=== PATIENT | female | born 1950 | race Caucasian/White ===

== ENCOUNTER 2017-06-13 16:32 | Emergency (ER) | payer MEDICARE, OTHER ==
[2017-06-13] MEDS ORDERED: LIDOCAINE 1% 50 ML VIAL INJ ONE (16:36)
[2017-06-13 16:52] VITALS: BP 145/70; TEMP 97.8; O2SAT 96
[2017-06-13] MEDS ORDERED: POVIDONE IODINE 10 % 15 ML UD TOP ONE (16:55)
[2017-06-13] MEDS ORDERED: MORPHINE SULFATE INJ 10 MG/ML VIAL ONE (16:57)
[2017-06-13] MEDS ORDERED: MORPHINE SULFATE INJ 10 MG/ML VIAL IM ONE (17:00)
--- NOTE | 2017-06-13 17:04 | ED.PDOC ---
History of Present Illness - General Chief Complaint: Skin/Abrasion/Tear Stated Complaint: Spade in L posterior hand Time Seen by Provider: 06/13/17 17:00 Additional Information: LARGE SINGLE HOOK DORSAL ASPECT L HAND. TETANUS UTD. C/O PAIN TO HAND AND UP ARM. WAS DEEPER AND PT PUSHED THROUGH SOME. 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 Factors: nothing Worsening Factors: movement Associated Symptoms: other - PAIN ARM Allergies/Adverse Reactions: Allergies Sulfa Drugs Allergy (Unknown, Verified 01/08/13 14:10) Influenza Vaccine Live Adverse Reaction (Severe, Verified 01/08/13 14:10) Other put her in the hospital Pneumococcal Vaccines Adverse Reaction (Severe, Verified 01/08/13 14:10) Other Hospitalized Home Medications: Ambulatory Orders Cephalexin Monohydrate [Keflex] 500 mg PO TID #30 cap 06/13/17 HYDROcodone 10MG/APAP 325MG [[place] 10/325] 1 ea PO STAT PRN 06/13/17 Ipratropium/Albuterol [Duoneb] 3 ml INH Q4H PRN 06/13/17 Pramipexole Dihydrochloride [Mirapex] 0.25 mg PO BID 06/13/17 Sertraline HCl [Zoloft] 200 mg PO HS 06/13/17 Review of Systems - Review of Systems Constitutional: Denies: chills, fever Gastrointestinal/Abdominal: Denies: nausea, vomiting Musculoskeletal: Denies: joint pain, muscle pain Skin: Denies: lesions Neurological: States: tingling. Denies: numbness Past Medical History (General) - Patient Medical History Hx Seizures: No Hx Stroke: No Hx Dementia: No Hx Asthma: No Hx of COPD: Yes Hx Cardiac Disorders: No Hx Congestive Heart Failure: No Hx Pacemaker: No Hx Hypertension: No Hx Thyroid Disease: No Hx Diabetes: No Hx Gastroesophageal Reflux: No Hx Renal Disease: No Hx Cancer: No Hx of HIV: No Hx Hepatitis C: No Hx MRSA: No Surgical History: cholecystectomy, Hysterectomy - Vaccination History Hx Tetanus, Diphtheria Vaccination: Yes - In March after fishhook injury Hx Influenza Vaccination: No Hx Pneumococcal Vaccination: No - Social History Hx Tobacco Use: No Hx Chewing Tobacco Use: No Hx Alcohol Use: Yes - occas Hx Substance Use: No Hx Substance Use Treatment: No Hx Depression: No Feels Threatened In Home Enviroment: No Feels Threatened In a Relationship: No Hx Physical Abuse: No Hx Emotional Abuse: No Hx Suspected Abuse: No - Female History Patient is a Female of Child Bearing Age (10 -59 yrs old): No Patient : No Family Medical History - Family History Mother Living Status: Hx Family Diabetes: Yes Physical Exam - Physical Exam General Appearance: Anxious, Other - MOD DISTRESS DTP Eye Exam: bilateral normal Ears, Nose, Throat: hearing grossly normal, normal ENT inspection Neck: full range of motion, supple Extremity: other - FISHHOOK DORSAL ASPECT L HAND. TIP LOCATED JUST UNDER SKIN. PALPABLE THROUGH JUST SLIGHTLY. NO ACTIVE BLEEDING, MILD SWELLING. Neurologic: normal mood/affect Skin Exam: other - NO ECCYMOSIS, MILD SWELLING. Progress - EKG/XRAY/CT XRAY: POST REMOVAL SHOWS NO FX. - FB NOTED, NO APPARENT BONY INJURY BUT HOOK OBSCURES PART OF METACARPAL Procedures - Foreign Body Removal Foreign Body Removal: other - ONCE JAYY WAS EXPOSED, CUT WITH SIDE CUTTERS HOOK REMOVED WITHOUT DIFFICULTY. Foreign Body Physician Comment:: PREPPED WITH BETADINE. 1% LIDO INSTILLED. SMALL INCISION MADE OVER JAYY Departure - Departure Clinical Impression: Foreign body in hand Qualifiers: Encounter type: initial encounter Laterality: left Qualified Code(s): S60.552A - Superficial foreign body of left hand, initial encounter Time of Disposition: 17:54 Disposition: Discharge to Home or Self Care Condition: Good Departure Forms: ED Discharge - Pt. Copy, Patient Portal Self Enrollment Instructions: DI for Hand Injury Prescriptions: Cephalexin Monohydrate [Keflex] 500 mg PO TID #30 cap Home Medications: Ambulatory Orders Cephalexin Monohydrate [Keflex] 500 mg PO TID #30 cap 06/13/17 HYDROcodone 10MG/APAP 325MG [[place] 10/325] 1 ea PO STAT PRN 06/13/17 Ipratropium/Albuterol [Duoneb] 3 ml INH Q4H PRN 06/13/17 Pramipexole Dihydrochloride [Mirapex] 0.25 mg PO BID 06/13/17 Sertraline HCl [Zoloft] 200 mg PO HS 06/13/17
[2017-06-13] MEDS ORDERED: NEOMYCIN-BACITRACIN-POLYMYXIN 0.9 GM UD TOP ONE (17:09)
--- NOTE | 2017-06-13 17:19 | RAD ---
EXAM DESCRIPTION: Hand,Left 3 Views CLINICAL HISTORY: FB HAND COMPARISON: None. TECHNIQUE: 3 views left FINDINGS: A large fishhook is observed implanted between the second and third metacarpals in the posterior soft tissues of the hand degenerative changes are observed in the metacarpal carpal articulation of the first digit. A compression plate and screws are observed in the distal radius from prior fracturing. 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 Prior avulsion of the ulnar styloid process is observed. IMPRESSION: A large fishhook is implanted in the soft tissues between the second and third left metacarpals Electronically signed by: Shayan Torres MD 06/13/2017 5:18 PM CDT
[2017-06-13] MEDS ORDERED: ONDANSETRON ODT 8 MG TAB SL PRN (17:23)
[2017-06-13] MEDS ORDERED: ONDANSETRON ODT 8 MG TAB ONE (17:25)
--- NOTE | 2017-06-13 17:39 | RAD ---
EXAM DESCRIPTION: Hand,Left 3 Views CLINICAL HISTORY: POST FB REMOVAL COMPARISON: 13 June 2013 TECHNIQUE: 3 views left FINDINGS: The previously observed large fishing hook has been removed from the posterior soft tissues of the hand. No residual foreign body is observed in the region. Persistent degenerative changes are observed. Exam also reveals a fusion plate and screws bridging a fracture of the distal radius. Some gas is observed in the soft tissues posteriorly. IMPRESSION: Interval removal of a large fishhook Electronically signed by: Shayan Torres MD 06/13/2017 5:38 PM CDT
[2017-06-13] MEDS ORDERED: LIDOCAINE 1% 10 ML VIAL INJ ONE (17:52)
[2017-06-13] MEDS ORDERED: ceFAZolin SODIUM 1 GM VIAL ONE (17:52)
[2017-06-13] MEDS ORDERED: ceFAZolin SODIUM 1 GM VIAL IM ONE (17:55)
== END 2017-06-13 18:12 | disposition home or self-care (01) ==
LOC: ER 16:32
DX: S60.552A Superficial foreign body of left hand, initial encounter (principal); J44.9 Chronic obstructive pulmonary disease, unspecified; Z88.2 Allergy status to sulfonamides; Z88.7 Allergy status to serum and vaccine; X58.XXXA Exposure to other specified factors, initial encounter; Y92.9 Unspecified place or not applicable
CPT/HCPCS: 73130; J0690; J2270

== ENCOUNTER → 2017-07-21 | Outpatient (CLI) | payer MEDICARE, OTHER | END | disposition home or self-care (01) | LOC: LAB.O 11:51 | PROVIDERS: ATTEND Nurse Practitioner Family | DX: A23 Brucellosis (principal) ==

== ENCOUNTER → 2017-07-27 | Outpatient (CLI) | payer MEDICARE, OTHER ==
--- NOTE | 2017-07-27 16:07 | CT ---
EXAM DESCRIPTION: CT ABDOMEN AND PELVIS WITHOUT AND WITH CONTRAST CLINICAL HISTORY: ABDOMINAL/PELVIC MASS COMPARISON: June 04, 2016 TECHNIQUE: CT of the abdomen and pelvis are performed prior to and during IV bolus administration of nonionic contrast. Oral contrast media was not administered This exam was performed according to our departmental dose-optimization program, which includes automated exposure control, adjustment of the mA and/or kV according to patient size and/or use of iterative reconstruction technique. FINDINGS: Lung bases are clear without infiltrate or effusion or mass. Breast implants overlie the anterior lower chest. Noncontrast imaging demonstrates no abnormality of the liver with apparent. Surgical absence of the gallbladder without ductal dilation. No renal calculi are noted. Aortic calcification without aneurysm is evident. No abdominal or pelvic fluid is noted with diverticulosis of the left colon and surgical absence of the uterus. Multiple surgical clips in the left lateral and posterior pelvis are unchanged. Venous enhanced imaging demonstrates normal enhancement without focal mass. Normal-appearing spleen and pancreas are noted. The kidneys intensely enhance without obstruction or mass or cyst in the adrenal glands are normal. Aortic calcification without aneurysm is evident with no evidence of retroperitoneal or mesenteric adenopathy. Vaginal cuff appears unremarkable. Delayed imaging demonstrates a single normal collecting system involving each kidney with layering contrast in the bladder. No anterior abdominal wall mass or hernia is noted. No inflammatory changes involving the left colon are noted. The appendix is not identified but no inflammatory process in the right lower quadrant noted. Degenerative disc disease with mild anterolisthesis at the L3-4 level with facet arthropathy is evident. The vaginal cuff and lower pelvis is unremarkable. No adnexal masses are noted and no evidence of renal obstruction seen. IMPRESSION: 1. Surgical absence of the gallbladder and uterus with surgical clips in the left lower pelvis laterally and posteriorly. 2. Left colonic diverticulosis without acute diverticulitis. 3. An abdominal or pelvic mass is not apparent 4. Degenerative spine disease most prominent at L3-4. Electronically signed by: Tom Merchant MD 07/27/2017 4:06 PM CDT
== END | disposition home or self-care (01) ==
LOC: CT 10:26
PROVIDERS: ATTEND Family Medicine
DX: K57.30 Diverticulosis of large intestine without perforation or abscess without bleeding (principal); R19.00 Intra-abdominal and pelvic swelling, mass and lump, unspecified site

== ENCOUNTER → 2017-07-28 | Outpatient (CLI) | payer MEDICARE, OTHER | LOC: GMAM 14:20 | PROVIDERS: ATTEND Family Medicine | DX: R10.9 Unspecified abdominal pain (principal); R74.8 Abnormal levels of other serum enzymes; R79.9 Abnormal finding of blood chemistry, unspecified; R53.83 Other fatigue; E56.9 Vitamin deficiency, unspecified; E55.9 Vitamin D deficiency, unspecified ==

== ENCOUNTER → 2017-09-05 | Outpatient (CLI) | payer MEDICARE, OTHER ==
--- NOTE | 2017-09-06 13:06 | RAD ---
EXAM DESCRIPTION: Abdomen Flat Upright CLINICAL HISTORY: LLQ PAIN COMPARISON: CT the abdomen pelvis dated 27 July 2017 TECHNIQUE: AP supine and upright views of the abdomen FINDINGS: The bowel gas pattern is normal. No evidence of free intraperitoneal air is seen. No organomegaly is detected. Surgical clips are seen in the left side of the pelvis. No pathologic calcifications are observed. IMPRESSION: Unremarkable abdomen. Electronically signed by: Shayan Torres MD 09/06/2017 1:05 PM CDT
== END | disposition home or self-care (01) ==
LOC: RAD 16:04
PROVIDERS: ATTEND Surgery
DX: R10.814 Left lower quadrant abdominal tenderness (principal)

== ENCOUNTER → 2017-11-23 | Outpatient (CLI) | payer MEDICARE, OTHER ==
--- NOTE | 2017-11-23 12:07 | CT ---
EXAM DESCRIPTION: Head: CT CLINICAL HISTORY: CONCUSSION WITH LOSS OF CONSCIOUSNESS OF UNSPECIFIED DURATION COMPARISON: None. TECHNIQUE: Non-helical axial scans through the skull and brain, at 2.5 mm intervals, non-contrast. Coronal and sagittal 2.0 mm reconstructions. Total Exam DLP: 677.23 mGy-cm. This exam was performed according to our departmental dose-optimization program which includes automated exposure control, adjustment of the mA and/or kV according to patient size and/or use of iterative reconstruction technique; to reduce radiation dose to as low as reasonably achievable (ALARA). FINDINGS: No hemorrhage, no mass-effect, and no midline shift. Normal adams-white matter differentiation. No abnormal radiodense material in the brain parenchyma. Vascular calcifications anterior intimal; physiologic calcifications in the pineal gland and choroid plexus. No effacement or displacement of the ventricles, CSF spaces, or subdural spaces. No extra axial fluid collection or hemorrhage. No gross abnormalities of the bony calvarium. Included paranasal sinuses and mastoid air cells are well - aerated. IMPRESSION: 1. No hemorrhage, no mass effect, no midline shift. Normal CT scan of the head without IV contrast. Brain appears physiologic for patient's age. 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
== END | disposition home or self-care (01) ==
LOC: CT 11:32
PROVIDERS: ATTEND Physician Assistant
DX: S06.0X9A Concussion with loss of consciousness of unspecified duration, initial encounter (principal); X58.XXXA Exposure to other specified factors, initial encounter

== ENCOUNTER → 2018-06-13 | Outpatient (CLI) | payer MEDICARE, OTHER | LOC: GMAM 11:55 | PROVIDERS: ATTEND Family Medicine | DX: E55.9 Vitamin D deficiency, unspecified (principal) ==

== ENCOUNTER → 2018-07-11 | Outpatient (CLI) | payer MEDICARE, OTHER ==
--- NOTE | 2018-07-11 10:34 | CT ---
EXAM DESCRIPTION: CT ABDOMEN AND PELVIS WITHOUT AND WITH CONTRAST CLINICAL HISTORY: Left lower quadrant pain and fullness COMPARISON: July 27, 2017 TECHNIQUE: CT of the abdomen and pelvis are performed prior to and during IV bolus administration of IV contrast. FINDINGS: The lung bases are clear of infiltrate. Liver is normal in size and parenchymal appearance. Spleen, pancreas, and kidneys are unremarkable. Extensive sigmoid diverticulosis with no CT evidence of diverticulitis. There is no lymphadenopathy, inflammation, or free fluid observed. IMPRESSION: Sigmoid diverticulosis This exam was performed according to our departmental dose-optimization program, which includes automated exposure control, adjustment of the mA and/or kV according to patient size and/or use of iterative reconstruction technique. Electronically signed by: Ted Mccoy MD 07/11/2018 10:33 AM CDT
== END ==
LOC: CT 08:25
PROVIDERS: ATTEND Family Medicine
DX: K57.30 Diverticulosis of large intestine without perforation or abscess without bleeding (principal); R10.84 Generalized abdominal pain

== ENCOUNTER → 2018-07-25 | Outpatient (CLI) | payer MEDICARE, OTHER ==
--- NOTE | 2018-07-25 10:17 | MRI ---
EXAM DESCRIPTION: MRI abdomen without and with contrast CLINICAL HISTORY: Left sided abdominal mass lesion. Sigmoid diverticulosis. Enlargement of mass lesion over the previous year COMPARISON: CT 07/11/2018 TECHNIQUE: Multiplanar, multisequence MR images of the abdomen, pre and post intravenous gadolinium FINDINGS: Marker placed left lateral overlying the oblique musculature. There is no cutaneous, subcutaneous or muscle mass lesion. No abdominal wall hernia No soft tissue mass or adenopathy within the abdomen. Omentum, mesentery and retroperitoneum included in the [id number] are normal No abdominal visceral mass lesion to suggest metastatic disease or primary neoplasm. Normal contrast enhancement Previous cholecystectomy with expected mildly prominent postcholecystectomy extrahepatic common bile duct. No ductal obstruction. No pancreatic duct dilation IMPRESSION: Normal pre and postcontrast MRI abdomen Electronically signed by: Tom Erwin MD 07/25/2018 10:16 AM CDT
== END ==
LOC: MRI 08:00
PROVIDERS: ATTEND Family Medicine
DX: R19.06 Epigastric swelling, mass or lump (principal)

== ENCOUNTER → 2019-01-09 | Outpatient (CLI) | payer MEDICARE, OTHER | LOC: GMAM 10:31 | PROVIDERS: ATTEND Family Medicine | DX: E55.9 Vitamin D deficiency, unspecified (principal) ==

== ENCOUNTER 2019-02-23 19:03 | Observation (INO) | payer MEDICARE, OTHER ==
[2019-02-23] MEDS ORDERED: SODIUM CHLORIDE 0.9% 1000ML 1,000 ML IVS PRN (19:06)
[2019-02-23] MEDS ORDERED: fentaNYL CITRATE INJ 50 MCG/ML AMP IV ONE ×3 (19:19→22:04)
--- NOTE | 2019-02-23 19:23 | ED.PDOC ---
History of Present Illness - General Chief Complaint: Trauma Stated Complaint: bucked off horse with LOC Time Seen by Provider: 02/23/19 19:16 Source: family - Exam Limitations: no limitations - History of Present Illness Initial Comments: Anita Moreno 68 y/o female brought by stating that while she was riding her horse she got bucked off fell head and back hitting the ground. stated that she lost consciousness for about 5 minutes after the incident- tried talking to her but not responding back.Then on waking up she was achy on the back of her head ,neck and back.On arrival to ER she was awake answering questions. Occurred: this evening Severity: moderate Pain Location: head, neck, back Method of Injury: fall - off a horse Improving Factors: rest Worsening Factors: movement Loss of Consciousness: prolonged (minutes) - 5 Associated Symptoms (Fall): headache - see hpi, neck pain Allergies/Adverse Reactions: Allergies Sulfa Drugs Allergy (Unknown, Verified 01/08/13 14:10) Influenza Vaccine Live Adverse Reaction (Severe, Verified 01/08/13 14:10) Other put her in the hospital Pneumococcal Vaccines Adverse Reaction (Severe, Verified 01/08/13 14:10) Other Hospitalized Home Medications: Ambulatory Orders Cephalexin Monohydrate [Keflex] 500 mg PO TID #30 cap 06/13/17 HYDROcodone 10MG/APAP 325MG [[place] 10] 1 ea PO STAT PRN 06/13/17 Ipratropium/Albuterol [Duoneb] 3 ml INH Q4H PRN 06/13/17 Pramipexole Dihydrochloride [Mirapex] 0.25 mg PO BID 06/13/17 Sertraline HCl [Zoloft] 200 mg PO HS 06/13/17 Review of Systems - Review of Systems Constitutional: States: no symptoms reported EENTM: States: no symptoms reported Respiratory: States: no symptoms reported Cardiology: States: no symptoms reported Gastrointestinal/Abdominal: States: no symptoms reported Genitourinary: States: no symptoms reported Musculoskeletal: States: back pain, neck pain Neurological: States: headache Endocrine: States: no symptoms reported Hematologic/Lymphatic: States: no symptoms reported Past Medical History (General) - Patient Medical History Hx Seizures: No Hx Stroke: No Hx Dementia: No Hx Asthma: No Hx of COPD: Yes Hx Cardiac Disorders: No Hx Congestive Heart Failure: No Hx Pacemaker: No Hx Hypertension: No Hx Thyroid Disease: No Hx Diabetes: Yes Hx Gastroesophageal Reflux: No Hx Renal Disease: No Hx Cancer: No Hx of HIV: No Hx Hepatitis C: No Hx MRSA: No Surgical History: other - hysterectomy,neck,foot,hand - Vaccination History Hx Tetanus, Diphtheria Vaccination: Yes - In March after fishhook injury Hx Influenza Vaccination: No Hx Pneumococcal Vaccination: No - Social History Hx Tobacco Use: No Hx Chewing Tobacco Use: No Hx Alcohol Use: Yes - occas Hx Substance Use: No Hx Substance Use Treatment: No Hx Depression: No Hx Physical Abuse: No Hx Emotional Abuse: No Hx Suspected Abuse: No - Female History Patient : No Family Medical History - Family History Mother Living Status: Hx Family Diabetes: Yes Physical Exam - Physical Exam General Appearance: No apparent distress, Other - in pain Head Injury: no evidence of injury Eye Exam: bilateral normal ENT Exam: hearing grossly normal, no evidence of ENT injury, no dental injury Neck Exam: normal alignment, normal inspection, tender midline Cardiovascular/Respiratory: regular rate, rhythm, no M/R/G, normal peripheral pulses, normal breath sounds Gastrointestinal/Abdominal: normal bowel sounds, non tender, soft Back Exam: normal inspection, vertebral tenderness Extremity Exam: no evidence of injury, non-tender, no pedal edema Neurologic: no motor/sensory deficits, alert, oriented x 3 Skin Exam: normal color, warm/dry - Anna Coma Score Best Eye Response ([place]): (4) open spontaneously Best Verbal Response ([place]): (5) oriented Best Motor Response ([place]): (6) obeys commands [place] Total: 15 Progress - Progress Progress: 02/23/19 21:52 Vital Signs - 8 hr 02/23/19 02/23/19 19:05 20:53 Temperature 98.4 F Pulse Rate [ 89 85 monitor] Respiratory 22 18 Rate Blood Pressure 149/79 139/66 [left] O2 Sat by Pulse 100 97 Oximetry - Results/Orders Results/Orders: 02/23/19 19:06 Telemetry .ONCE Sodium Chloride 0.9% 1000ML [Ns 1000 ml] 1,000 ml IVS .QD EKG Stat URINALYSIS Stat 02/23/19 19:08 Hold Metformin x 48Hrs [id number] 02/23/19 19:14 Hold Metformin x 48Hrs [id number] 02/23/19 21:51 ED Intent to Admit Routine 02/24/19 09:00 Pulse Ox Daily Laboratory Results - last 24 hr 02/23/19 02/23/19 02/23/19 19:15 19:15 19:15 WBC 7.7 RBC 4.13 L Hgb 12.7 Hct 37.3 MCV 90.4 MCH 30.7 MCHC 34.0 RDW 13.9 Plt Count 227 MPV 8.0 Absolute Neuts (auto) 5.10 Absolute Lymphs (auto) 1.90 Absolute Monos (auto) 0.50 Absolute Eos (auto) 0.20 Absolute Basos (auto) 0.10 Neutrophils % 66.4 Lymphocytes % 24.2 Monocytes % 6.0 Eosinophils % 2.6 Basophils % 0.8 PT 9.9 INR 0.99 PTT (SP) 21.5 L Sodium 136 Potassium 3.3 L Chloride 101 Carbon Dioxide 20 L Anion Gap 18.3 H BUN 19 H Creatinine 0.86 BUN/Creatinine Ratio 22.1 H Random Glucose 122 H Serum Osmolality 275.5 Calcium 9.2 Total Bilirubin 0.4 AST 20 ALT 16 Alkaline Phosphatase 69 Serum Total Protein 7.4 Albumin 4.2 Globulin 3.2 Albumin/Globulin Ratio 1.3 Amylase 30 Ethyl Alcohol 02/23/19 19:15 WBC RBC Hgb Hct MCV MCH MCHC RDW Plt Count MPV Absolute Neuts (auto) Absolute Lymphs (auto) Absolute Monos (auto) Absolute Eos (auto) Absolute Basos (auto) Neutrophils % Lymphocytes % Monocytes % Eosinophils % Basophils % PT INR PTT (SP) Sodium Potassium Chloride Carbon Dioxide Anion Gap BUN Creatinine BUN/Creatinine Ratio Random Glucose Serum Osmolality Calcium Total Bilirubin AST ALT Alkaline Phosphatase Serum Total Protein Albumin Globulin Albumin/Globulin Ratio Amylase Ethyl Alcohol < 5.40 - EKG/XRAY/CT CT Ordered: Yes - total Body Scan-No acute abnormalities;degenerative changes Departure - Departure Clinical Impression: Fall from horse Qualifiers: Encounter type: initial encounter Qualified Code(s): V80.010A - Animal-rider injured by fall from or being thrown from horse in noncollision accident, initial encounter Headache Qualifiers: Headache type: unspecified Headache chronicity pattern: acute headache Intractability: not intractable Qualified Code(s): R51 - Headache Concussion Qualifiers: Encounter type: initial encounter Loss of consciousness presence/duration: with LOC of 30 min or less Qualified Code(s): S06.0X1A - Concussion with loss of consciousness of 30 minutes or less, initial encounter Time of Disposition: 21:50 Disposition: Admit Patient Condition: Fair Departure Forms: Patient Portal Self Enrollment Referrals: Tom Sultana MD [Primary Care Provider] - 1-2 Weeks Home Medications: Ambulatory Orders Cephalexin Monohydrate [Keflex] 500 mg PO TID #30 cap 06/13/17 HYDROcodone 10MG/APAP 325MG [[place] 10325] 1 ea PO STAT PRN 06/13/17 Ipratropium/Albuterol [Duoneb] 3 ml INH Q4H PRN 06/13/17 Pramipexole Dihydrochloride [Mirapex] 0.25 mg PO BID 06/13/17 Sertraline HCl [Zoloft] 200 mg PO HS 06/13/17 Decision To Admit - Decistion To Admit Decision to Admit Reason: Admit from ER Decision to Admit Date: 02/23/19 - D/W Izzy Garcia-ANP/Hospitalist Decision to Admit Time: 21:51
--- NOTE | 2019-02-23 20:25 | CT ---
EXAM: Head CLINICAL INDICATION: 68-year-old female with loss of consciousness status post trauma. COMPARISON: 11/23/2017. TECHNIQUE: CT brain without contrast. This exam was performed according to our departmental dose optimization program which includes use of automated exposure control, adjustment of the mA and/or kV according to patient size and/or use of iterative reconstruction technique. FINDINGS: The ventricles, sulci, and cisterns are within normal limits. The adams-white matter differentiation is preserved. There is no mass effect, midline shift, intra- or extra-axial fluid collection/acute hemorrhage. The osseous structures are unremarkable. The paranasal sinuses and mastoid air cells are clear. IMPRESSION: No acute intracranial abnormalities. Electronically signed by: Ronit Pedraza MD 02/23/2019 8:22 PM CDT
--- NOTE | 2019-02-23 20:34 | CT ---
EXAM: Abdomen/Pelvis w/Contrast (accession [id number]), Chest w/Contrast (accession [id number]) CLINICAL INDICATION: 68-year-old female bucked off a horse. COMPARISON: 07/11/2018. EXAMINATION: CT of the chest, abdomen and pelvis was performed following intravenous administration of contrast. Oral contrast was not administered. Multiplanar reformatted images were provided. This exam was performed according to our departmental dose optimization program which includes use of automated exposure control, adjustment of the mA and/or kV according to patient size and/or use of iterative reconstruction technique. FINDINGS: Chest: Evaluation through the lungs reveal no focal opacity, pleural effusion or pneumothorax. Heart size is within normal limits. No pericardial effusion. Bilateral breast prostheses. Abdomen and pelvis: The liver, gallbladder, pancreas, spleen, bilateral kidneys and bilateral adrenal glands are within normal limits. The vessels are patent and normal in caliber. No abdominopelvic lymph nodes are noted to be pathologically enlarged by CT measurement criteria. The bowel is within normal limits without abnormal bowel wall thickness or bowel dilation. Diverticular disease without findings to suggest diverticulitis. No free air. No free abdominopelvic fluid collections. The appendix is not identified. The osseous structures reveal degenerative change and grade 1 anterolisthesis of L4 relative to L5 and trace anterolisthesis of L3 relative to L4 suspected secondary to severe degenerative facet changes at those levels stable in comparison to the previous examination 07/11/2018. IMPRESSION: 1. No specific acute posttraumatic intrathoracic or intra-abdominal findings are noted. 2. Diverticular disease without findings to suggest diverticulitis. 3. Grade 1 anterolisthesis of L4 relative to L5 and trace anterolisthesis of L3 relative to L4 suspected secondary to severe degenerative facet changes at those levels. Electronically signed by: Ronit Pedraza MD 02/23/2019 8:31 PM CDT
--- NOTE | 2019-02-23 20:38 | CT ---
EXAM: Cervical Spine CLINICAL INDICATION: 68-year-old female status post fall from horse with loss of consciousness. TECHNIQUE: Cervical spine CT was performed without contrast. Multiplanar reformatted images were provided. This exam was performed according to our departmental dose optimization program which includes use of automated exposure control, adjustment of the mA and/or kV according to patient size and/or use of iterative reconstruction technique. COMPARISON: None. FINDINGS: There is normal alignment of the cervical spine without fracture or subluxation. The facets are normal in alignment bilaterally. The posterior elements including the spinous processes are intact. Straightening of the cervical spine which may be secondary to positioning for the examination. Morphology and attenuation of the vertebral bodies and intervertebral disc spaces is is compatible with multilevel degenerative change. Multilevel posterior osseous spurring results in multilevel neuroforaminal narrowing. RIGHT side C2-3 severe neuroforaminal narrowing secondary to uncovertebral joint and facet hypertrophy. Postoperative changes of the cervical spine with ventral stabilization hardware and fusion of C3, C4 and C5 vertebral levels. Severe loss of disk height at C2-3 and C5-6 levels. Severe bilateral neuroforaminal narrowing at C5-6 secondary to uncovertebral joint hypertrophy. Moderate bilateral neuroforaminal narrowing at C6-7 secondary to facet hypertrophy. The pre-and paravertebral soft tissues are within normal limits. The airway is patent. Extraspinal imaging is within normal limits. IMPRESSION: 1. Straightening of the cervical spine which may be secondary to positioning for the examination versus spasm. 2. Multilevel degenerative and postoperative changes without fracture or acute subluxation. Electronically signed by: Ronit Pedraza MD 02/23/2019 8:35 PM CDT
[2019-02-23] MEDS ORDERED: ONDANSETRON INJ 4 MG/2 ML VIAL IV ONE (21:15)
[2019-02-23] MEDS ORDERED: ALPRAZolam 0.5 MG TAB PO PRN (23:56)
[2019-02-24] MEDS ORDERED: SERTRALINE HCL 50 MG TAB ONE (00:10)
[2019-02-24] MEDS ORDERED: SODIUM CHLORIDE 0.9% (FLUSH) 10 ML SYG IV PRN (00:13)
[2019-02-24] MEDS ORDERED: ONDANSETRON INJ 4 MG/2 ML VIAL IV PRN (00:13)
[2019-02-24] MEDS: HYDROcodone 10MG/APAP 325MG 1 EA TAB PO PRN ×3 (00:21→10:22)
[2019-02-24] MEDS ORDERED: IV SET AND CAP CHANGE INJ INJ SCH (00:30)
[2019-02-24] MEDS ORDERED: PRAMIPEXOLE 0.25 MG TAB PO ONE ×2 (00:34→01:00)
[2019-02-24 06:08] VITALS: O2SAT 95
[2019-02-24] MEDS ORDERED: PANTOPRAZOLE SODIUM IV 40 MG VIAL IV SCH (06:30)
[2019-02-24] MEDS ORDERED: SODIUM CHLORIDE 0.9% (FLUSH) 10 ML SYG IV SCH (09:00)
[2019-02-24 10:18] VITALS: BP 103/60; TEMP 96.6
[2019-02-24] MEDS ORDERED: ONDANSETRON 4 MG TAB PO ONE (11:31)
[2019-02-24] MEDS ORDERED: HYDROcodone 10MG/APAP 325MG 1 EA TAB PO ONE (11:31)
[2019-02-24] MEDS ORDERED: SERTRALINE HCL 50 MG TAB PO ONE (23:56)
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
== END 2019-02-24 12:28 | disposition home or self-care (01) ==
LOC: ER 19:03 → MS 23:09
PROVIDERS: ADMIT Nurse Practitioner Acute Care; ATTEND Nurse Practitioner Acute Care
DX: S06.0X1A Concussion with loss of consciousness of 30 minutes or less, initial encounter (principal); G44.319 Acute post-traumatic headache, not intractable; M47.812 Spondylosis without myelopathy or radiculopathy, cervical region; J44.9 Chronic obstructive pulmonary disease, unspecified; E11.9 Type 2 diabetes mellitus without complications; G89.4 Chronic pain syndrome; G25.81 Restless legs syndrome; F32.9 Major depressive disorder, single episode, unspecified; F41.9 Anxiety disorder, unspecified; E78.5 Hyperlipidemia, unspecified; K57.30 Diverticulosis of large intestine without perforation or abscess without bleeding; V80.010A Animal-rider injured by fall from or being thrown from horse in noncollision accident, initial encounter; Y93.52 Activity, horseback riding; Y92.79 Other farm location as the place of occurrence of the external cause; Z79.84 Long term (current) use of oral hypoglycemic drugs; Z79.899 Other long term (current) drug therapy; Z88.2 Allergy status to sulfonamides; Z88.7 Allergy status to serum and vaccine; Z88.8 Allergy status to other drugs, medicaments and biological substances
CPT/HCPCS: 96374; 96375 ×2; 96376; J3010 ×3; J2405; J7030; 80053 ×2; 36415 ×2; 82150; 81001; 85025 ×2; 80320; 83735; 85730; 85610; 70450; 72125; 71260; 74177; 94760; 99285; 93005; G0378

== ENCOUNTER → 2019-03-22 | Outpatient (CLI) | payer MEDICARE, OTHER ==
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
== END ==
LOC: MRI 13:00
PROVIDERS: ATTEND Family Medicine
DX: I67.82 Cerebral ischemia (principal)

== ENCOUNTER → 2019-03-27 | Outpatient (CLI) | payer MEDICARE, OTHER ==
--- NOTE | 2019-03-27 10:16 | MRI ---
EXAM: Lumbar Spine w/o Contrast CLINICAL HISTORY: SPINAL STENOSIS LUMBAR REGION COMPARISON STUDY: Images from a CT abdomen and pelvis February 23, 2019 TECHNICAL: MRI images were acquired through the lumbar spine in multiple planes and sequences without contrast administration. FINDINGS: Sagittal images of the lumbar spine show no evidence of vertebral body fracture. There is mild edema-like change within the right L5 pedicle with no finding of cortical disruption to indicate a fracture. An anterior spondylolisthesis of L4 related to L5 is 8 mm. A mild anterior spondylolisthesis of L3 on L4 is 3 mm. There is little change compared to the sagittal reconstructions from the CT scan February 23, 2019. The conus medullaris has a normal appearance. T12-L1 and L1-2: Minimal diffuse annular bulges are seen at these 2 levels. There is no naeem disc herniation. There is no spinal canal stenosis or foraminal stenosis. There is no evidence of nerve root impingement. There are mild degenerative changes of facets and mild ligamentum flavum hypertrophy. L2-3: A posterior disc protrusion measures 4.5 mm and indents the thecal sac without causing spinal canal stenosis. Disc protrudes into each exiting foramina 4-5 mm and these lateral disc protrusions do not impinge on the exiting nerve roots. There are moderate degenerative changes of the facets and moderate ligamentum flavum hypertrophy. An anterior disc protrusion is 4.5 mm. L3-4: A posterior disc herniation extends 6 mm AP by 9 mm in craniocaudal dimension. Disc material extends proximally behind the L3 vertebral body. The central spinal canal measures greater than 12 mm, not stenotic. Disc protrudes into the right exiting foramina 6 mm and of the left exiting foramina 6 mm. Lateral disc protrusions contacting both exiting nerve roots without overt compression. There is moderate to severe facet arthropathy. Significant ligamentum flavum hypertrophy measures up to 6.5 mm. The central spinal canal is greater than 11 mm. 7 mm anterior disc protrusion. L4-5: Spondylolisthesis of 8 mm. A posterior disc herniation extends proximally behind the L4 vertebral body and the disc material measures 10 x 8 mm. The central spinal canal is stenotic due to the combination of posterior disc protrusion, spondylolisthesis and severe ligamentum flavum hypertrophy. The central spinal canal is narrowed to 7 mm. The spinal canal on either side of midline is less than 2 mm. Disc extends laterally in each exiting foramina 7 or 8 mm with impingement of both exiting nerve roots. There are severe degenerative changes of the bilateral facets and severe ligamentum flavum hypertrophy. 7 mm anterior disc protrusion. L5-S1: 4 mm diffuse disc protrusion does not cause central spinal canal stenosis or compress the exiting nerve root. There are severe degenerative changes of the bilateral facets. IMPRESSION: 1. Central spinal Canal stenosis at L4-5 from a combination of disc protrusion, spondylolisthesis and ligamentum flavum hypertrophy. 2. 8 mm spondylolisthesis at L4-5. 3. Impingement of the bilateral exiting nerve roots at L4-5. 4. Contact of both exiting nerve roots at L3-4. 5. 3 mm spondylolisthesis at L3-4. 6. Mild edema of the right L5 pedicle is likely due to degenerative changes of the facets. 7. Anterior disc protrusions L2-3, L3-4 and L4-5. Electronically signed by: Fitz Avelar MD 03/27/2019 10:15 AM CDT
== END ==
LOC: MRI 08:00
PROVIDERS: ATTEND Family Medicine
DX: M48.061 Spinal stenosis, lumbar region without neurogenic claudication (principal); M43.16 Spondylolisthesis, lumbar region; M51.26 Other intervertebral disc displacement, lumbar region

== ENCOUNTER 2019-06-30 12:13 | Emergency (ER) | payer MEDICARE, OTHER ==
[2019-06-30] MEDS ORDERED: SODIUM CHLORIDE 0.9% 1000ML 1,000 ML IVS ONE (12:33)
[2019-06-30] MEDS ORDERED: PROMETHAZINE HCL INJ 25 MG in SODIUM CHLORIDE 0.9% 50ML 50 ML IVPB ONE (12:33)
[2019-06-30] MEDS ORDERED: SODIUM CHLORIDE 0.9% 50ML 50 ML ONE (13:02)
[2019-06-30] MEDS ORDERED: PROMETHAZINE HCL INJ 25 MG/ML VIAL ONE (13:02)
--- NOTE | 2019-06-30 13:07 | CT ---
Procedure: CT HEAD WITHOUT IV CONTRAST Exam Date: 06/30/2019 12:33 PM CDT Ordering Provider: Ever Sultana Clinical Indication: vertigo Comparison: None Technique: CT images of the head were obtained without contrast administration. Coronal and sagittal reformats were obtained. This exam was performed according to our departmental dose-optimization program which includes automated exposure control, adjustment of the mA and/or kV according to patient size and/or use of iterative reconstruction technique. Findings: There is no acute cortical infarction, hemorrhage, midline shift, mass effect, or hydrocephalus. The calvaria and skull base are unremarkable. Paranasal sinuses and mastoid air cells are well aerated. Impression: 1. No acute intracranial abnormality. Electronically signed by: Falguni Ulloa MD 06/30/2019 1:05 PM CDT
[2019-06-30] MEDS ORDERED: MECLIZINE HCL 12.5 MG TAB PO ONE (14:03)
[2019-06-30] MEDS ORDERED: diazePAM INJ 10 MG/2 ML SYG IV ONE (14:52)
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
[2019-06-30 16:14] VITALS: BP 126/72
[2019-06-30 16:25] VITALS: TEMP 97.9; O2SAT 93
== END 2019-06-30 16:50 | disposition short-term general hospital (02) ==
LOC: ER 12:13
DX: R42 Dizziness and giddiness (principal); H55.00 Unspecified nystagmus; Z79.82 Long term (current) use of aspirin; Z79.899 Other long term (current) drug therapy; Z88.2 Allergy status to sulfonamides; Z88.7 Allergy status to serum and vaccine
CPT/HCPCS: 36415; 70450; 80053; 82550; 82553; 83735; 84443; 84484; 85025; A4216; J2550; J7030

== ENCOUNTER → 2019-07-17 | Outpatient (CLI) | payer MEDICARE, OTHER ==
--- NOTE | 2019-07-17 14:56 | RAD ---
EXAM DESCRIPTION: Lumbar Spine 3 Views: CR/DR/x-ray. CLINICAL HISTORY: 68 years Female Spinal stenosis COMPARISON: CT scan abdomen and pelvis and CT scan of the chest February 2019. TECHNIQUE: 3 Views lumbar spine. AP Lateral lumbosacral lateral spot L5-S1. FINDINGS: Lumbar type vertebra: 5 Transitional vertebrae: T12 with rudimentary ribs. Confirmed on CT scans from February 2019.. Disc spaces: Posterior fusion construct with bilateral connecting rods and interbody fusion devices at L3-4 and L4-5. Customary position and near-anatomic alignment. Appearance of hardware unremarkable with no bony abnormalities associated with the hardware. Narrowing posterior L2-L3 disc space and L1-L2 disc space. Lordosis is maintained. Minimal narrowing L5-S1 disc space. Facet joints: Fusion L5-S1 bilaterally and L4-L5 bilaterally. Compression deformities: None. Bone Density: Normal. Alignment: Lordosis maintained. Abdomen: Nonspecific bowel gas. Minimal aortic calcifications. IMPRESSION: Posterior transpedicular lumbar fusion L3-L5 bilaterally. No hardware or bony complications. Spondylosis and disc space narrowing L5-S1, L2-L3, and L1-L2. Transitional T12 with rudimentary ribs. No compression type vertebral body fractures.. Electronically signed by: Luis Alberto Acosta MD 07/17/2019 2:55 PM CDT
== END ==
LOC: RAD 14:02
PROVIDERS: ATTEND Physical Medicine & Rehabilitation
DX: M48.062 Spinal stenosis, lumbar region with neurogenic claudication (principal); M43.16 Spondylolisthesis, lumbar region

== ENCOUNTER → 2019-07-19 | Outpatient (CLI) | payer MEDICARE, OTHER ==
--- NOTE | 2019-07-20 10:32 | MRI ---
EXAM DESCRIPTION: Lumbar Spine w/wo Contrast: Magnetic Resonance Imaging. CLINICAL HISTORY: SPINAL STENOSIS LUMBAR REGION. Left leg pain and numbness post surgery COMPARISON: MRI scan of the lumbar spine prior to fusion construct surgery, 03/27/2019. TECHNIQUE: Multiplanar, MRI, multiple standard sequences, without and with Dotarem 0.1 mL/lb., (15 mL) Gadolinium IV contrast, lumbar spine. No adverse reactions. FINDINGS: L5-S1: Disc space is well demonstrated on axial T2 series 501, image 3. Minimal disc space loss and disc desiccation. Posterior midline bulge with hyperintense T2 annular fissure. Minimal bilateral flavum ligament thickening. AP canal diameter 11 mm. Bone growth around the bilateral L5 pedicles is narrowing the superior foramina bilaterally more right than left but not stenotic. No abnormal enhancement. Posterior fusion construct L3-L5 with unilateral connecting rods and interbody fusion devices. No abnormal fluid accumulation around the hardware, in the soft tissues or in the spinal canal. No abnormal enhancement around the hardware or in the spinal canal. Bilateral moderate foraminal narrowing at L4-5. Mild foraminal narrowing on the right at L3-4 and moderate on the left. No canal stenosis. L2-3: Disc desiccation anterior bulging and endplate ridging. Minimal posterior bulge with moderate endplate reactive changes. AP canal diameter 13 mm. Bilateral ligament thickening. Moderate narrowing of the left foramen and mild narrowing of the right foramen. Normal contrast enhancement. L1-L2: Disc desiccation minimal disc space loss and anterior bulging. Trace posterior bulge. Posterior elements unremarkable. Canal and foramina are patent. Normal contrast enhancement. Hyperintense T1 and T2 circumscribed hemangioma in the L1 vertebral body without enhancement. Conus terminates at this level with Normal enhancement. T12-L1: Disc unremarkable with minimal anterior reactive endplate changes. Disc space maintained with no posterior bulging. Posterior elements unremarkable. Canal and foramina are patent. Normal enhancement in the distal cord. Vertebral bodies are not compressed at any level. Normal marrow signal in the vertebral bodies and the posterior elements. Normal Contrast enhancement. Paravertebral soft tissues are unremarkable, except for muscle atrophy, with normal.Perivertebral contrast enhancement. IMPRESSION: 1. Posterior fusion construct at L3-L5 since the prior study with bilateral transpedicular screws and unilateral connecting rods. No hardware or bony complications with normal contrast enhancement. No canal stenosis. Moderate narrowing of the left L3-L4, and bilateral neural foramina. 2. Posterior midline L5-S1 disc bulge with annular fissure posterior margin new since the prior study. Moderate canal narrowing. Narrowing of the bilateral foramina due to position of the bilateral L5 transpedicular screws. 3. Moderate narrowing of the L2-L3 spinal canal stable since the prior study. Electronically signed by: Luis Alberto Acosta MD 07/20/2019 10:31 AM CDT
== END ==
LOC: MRI 11:00
PROVIDERS: ATTEND Physical Medicine & Rehabilitation
DX: M48.062 Spinal stenosis, lumbar region with neurogenic claudication (principal); M43.16 Spondylolisthesis, lumbar region; M99.23 Subluxation stenosis of neural canal of lumbar region; M51.87 Other intervertebral disc disorders, lumbosacral region; M54.16 Radiculopathy, lumbar region; Z98.1 Arthrodesis status

== ENCOUNTER → 2019-10-08 | Outpatient (CLI) | payer MEDICARE, OTHER ==
--- NOTE | 2019-10-09 10:14 | MRI ---
EXAM DESCRIPTION: MRI left knee CLINICAL HISTORY: Left knee pain and swelling COMPARISON: None. TECHNIQUE: Multiplanar, multisequence MR images of the left knee FINDINGS: Intraligamentous and periligamentous edema MCL, grade 2 sprain/interstitial partial tear along the proximal to mid ligament. Meniscocapsular separation over short segment along the mid to posterior body No medial meniscal tear. Intrameniscal mucoid degenerative signal over short segment. Medial femorotibial chondral thinning and surface irregularity diffusely. Grade 3 chondrosis over the majority of the weightbearing condyle mid to anterior. Small focus of edema in the tibia from full-thickness fissure No lateral meniscal tear. Lateral femorotibial cartilage intact ACL, PCL and fibular collateral ligaments are normal Diffuse high-grade patellar chondrosis, grade 3 and grade 4 over the entire lateral facet and apex. Subchondral bony irregularity and edema along the upper lateral apex and the lower lateral patella. Trochlear cartilage mild thinning without subchondral marrow abnormality Biceps femoris, popliteus and iliotibial band tendons are intact Patellar and quadriceps tendons are normal. Edema within the ventral patella subjacent to the retinaculum. Overlying subcutaneous soft tissue edema Tendons of the posterior medial knee are intact Small joint effusion. Minimal fluid in the gastrocnemius semimembranosus bursa IMPRESSION: Grade 2 sprain/interstitial partial tear of the MCL with short segment meniscocapsular separation Medial femorotibial and patellofemoral chondrosis Prepatellar soft tissue edema. Mild osseous edema along the ventral patella subjacent to the retinaculum. This may relate to contusion or mechanical edema Electronically signed by: Tom Erwin MD 10/09/2019 10:12 AM [facility]
== END ==
LOC: MRI 13:53
PROVIDERS: ATTEND Family Medicine
DX: S83.412A Sprain of medial collateral ligament of left knee, initial encounter (principal); M22.42 Chondromalacia patellae, left knee; R60.9 Edema, unspecified

== ENCOUNTER → 2019-10-09 | Outpatient (CLI) | payer MEDICARE, OTHER ==
--- NOTE | 2019-10-09 20:04 | US ---
EXAM DESCRIPTION: Venous,Lower Extremity LT: ULTRASOUND. CLINICAL HISTORY: EDEMA. Left lower extremity. COMPARISON: None Available. TECHNIQUE: Ramos-scale and doppler sonographic evaluation of the deep venous system of the left lower extremity. FINDINGS: Doppler evaluation shows normal color flow and normal phasicity and augmentation of the left common femoral vein, femoral vein, popliteal vein, greater saphenous vein, junction with the CFV. Also normal color flow and normal phasicity and augmentation of the peroneal, and posterior tibial vein. The left lower extremity deep veins were completely compressible; normal occlusion with transducer pressure. Ramos-scale survey showed no echogenic thrombus within these veins. IMPRESSION: 1. Duplex ultrasound evaluation of the left lower extremity deep venous system showing no evidence of thrombosis. Electronically signed by: Luis Alberto Acosta MD 10/09/2019 8:02 PM [facility]
== END ==
LOC: US 13:30
PROVIDERS: ATTEND Family Medicine
DX: R60.9 Edema, unspecified (principal); M25.562 Pain in left knee

== ENCOUNTER → 2019-10-18 | Outpatient (CLI) | payer MEDICARE, OTHER ==
--- NOTE | 2019-10-18 14:42 | RAD ---
EXAM DESCRIPTION: Knee,Left 1 or 2 Views CLINICAL HISTORY: 69 years Female, PAIN IN LEFT KNEE TECHNIQUE: 2 views of the left knee were performed. COMPARISON: None available. FINDINGS: The visualized bones appear well mineralized. No acute fracture or dislocation. Mild medial tibiofemoral joint space narrowing. No evidence of suprapatellar joint effusion. The soft tissues appear grossly unremarkable. IMPRESSION: Mild medial tibiofemoral joint space narrowing of the left knee. Electronically signed by: Soila Glass MD 10/18/2019 2:[address] [facility]
--- NOTE | 2019-10-18 14:44 | RAD ---
EXAM DESCRIPTION: Pelvis CLINICAL HISTORY: 69 years Female, PAIN IN LEFT HIP COMPARISON: None. TECHNIQUE: AP radiograph of the pelvis was performed. FINDINGS: The pelvic ring appears grossly intact on this single AP radiograph. No acute fracture or dislocation. Bilateral sacroiliac joints appear normal. Mild bilateral hip osteoarthritis. The visualized lumbo-sacral spine demonstrates mild degenerative changes. IMPRESSION: Single AP radiograph of the pelvis demonstrates grossly intact pelvic ring. Mild bilateral hip osteoarthritis. Electronically signed by: Soila Glass MD 10/18/2019 2:42 PM [facility]
== END ==
LOC: RAD 09:37
PROVIDERS: ATTEND Orthopaedic Surgery
DX: M16.0 Bilateral primary osteoarthritis of hip (principal); M25.862 Other specified joint disorders, left knee

== ENCOUNTER → 2020-03-04 | Outpatient (CLI) | payer MEDICARE, OTHER ==
--- NOTE | 2020-03-05 12:33 | MRI ---
EXAM DESCRIPTION: Cervical Spine: MRI. CLINICAL HISTORY: 69 years Female CERVICAL RADICULOPATHY COMPARISON: CT scan cervical spine February 2019. TECHNIQUE: Multiplanar, high-field MRI, multiple sequences, non-contrast Cervical spine. FINDINGS: ACDF C3-C5 again visualized with bilateral screws in the C3 and C5 vertebral bodies. Osseous interbody fusion is almost complete at C3-C4. Narrowing of the canal. No significant facet arthrosis. Canal and foramina are not stenotic with significantly narrowed. C4-C5 interbody osseous fusion is almost complete. Mild canal narrowing. No significant facet arthrosis and hypertrophy. No significant foraminal narrowing or stenosis. No abnormal marrow edema soft tissue mass or fluid collection. C2-C3: Moderate disc space loss with disc desiccation. Posterior midline disc bulge or focal protrusion abutting the cord. Left uncinate spur. Bilateral hypertrophic facet arthrosis. Borderline mild right neural foraminal stenosis, similar to prior CT scan. No neural foraminal stenosis left. C5-C6: Significant disc space loss with disc desiccation, anterior endplate ridging. 2 mm grade 1 retrolisthesis. Posterior disc remnant bulging into the cord with hypertrophy of the posterior ligaments; AP canal diameter 7 mm. Bilateral uncinate spurs larger on the right. Moderate to severe left neural foraminal narrowing with right neural foraminal stenosis. C6-C7: Disc desiccation and posterior broad-based bulge. Posterior hypertrophic degenerated flavum ligaments abutting the cord. Mild central canal stenosis. Bilateral facet degenerative hypertrophy. Bilateral mild to moderate neural foraminal narrowing. C7-T1: Minimal disc desiccation with disc space maintained. Left facet joint with mild degenerative hypertrophy and right facet joint unremarkable. Normal signal in the T1-T2 disc with no bulging. Disc space preserved. Canal and neural foramina are patent. Facet joints negative. Spinal alignment trace dextroscoliosis. No cord compression or cord edema. Atlantoaxial joint mild to moderate degenerative hypertrophy with posterior capsule almost abutting the cord. Base of the cerebellar tonsils is just above the foramen magnum. Paravertebral soft tissues negative. Vertebral bodies are not compressed at any level. Otherwise normal marrow signal in the remaining vertebral bodies and the posterior elements. IMPRESSION: 1. ACDF C3-C5 with interbody osseous fusion almost complete. No canal or neural foraminal stenosis. No complications. 2. Borderline mild right neural foraminal stenosis C2-C3 similar to prior CT scan. 3. Mild central canal stenosis C5-C6. Right neural foraminal stenosis. Correlate for right C6 radiculopathy. Electronically signed by: Luis Alberto Acosta MD 03/05/2020 12:32 PM CDT
== END ==
LOC: MRI 10:31
PROVIDERS: ATTEND Psychiatry & Neurology Neurology
DX: M43.22 Fusion of spine, cervical region (principal); M48.02 Spinal stenosis, cervical region; R51 Headache

== ENCOUNTER → 2020-04-10 | Outpatient (CLI) | payer MEDICARE, OTHER | LOC: GMAM 08:00 | PROVIDERS: ATTEND Family Medicine | DX: Z01.812 Encounter for preprocedural laboratory examination (principal) ==

== ENCOUNTER → 2020-05-21 | Outpatient (CLI) | payer MEDICARE, OTHER ==
--- NOTE | 2020-05-21 20:07 | CT ---
EXAM: CT Angiography Chest With Intravenous Contrast CLINICAL HISTORY: PRECARDIAL PAIN TECHNIQUE: Axial computed tomographic angiography images of the chest with intravenous contrast. Sagittal and coronal reformatted images were created and reviewed. This CT exam was performed using one or more of the following dose reduction techniques: automated exposure control, adjustment of the mA and/or kV according to patient size, and/or use of iterative reconstruction technique. MIP reconstructed images were created and reviewed. COMPARISON: No relevant prior studies available. FINDINGS: Pulmonary arteries: Unremarkable. No pulmonary embolism. Aorta: No acute findings. No thoracic aortic aneurysm. Lungs: There are chronic obstructive changes. There is vascular congestion. Zones of hyperinflation and nonspecific groundglass opacity identified in both lungs right greater than left. Pleural space: Unremarkable. No significant effusion. No pneumothorax. Heart: Cardiomegaly. No significant pericardial effusion. No evidence of RV dysfunction. Bones/joints: No acute fracture. No dislocation. Soft tissues: Bilateral breast prostheses present. Lymph nodes: Unremarkable. No enlarged lymph nodes. IMPRESSION: 1. Pulmonary edema. Nonspecific mild groundglass density identified may represent pneumonitis. 2. No pulmonary embolus noted. Electronically signed by: Brandi Montoya MD 05/21/2020 8:06 PM CDT
== END ==
LOC: RAD 17:57
PROVIDERS: ATTEND Family Medicine
DX: J81.1 Chronic pulmonary edema (principal); R91.8 Other nonspecific abnormal finding of lung field; R07.2 Precordial pain; R00.2 Palpitations; E55.9 Vitamin D deficiency, unspecified

== ENCOUNTER → 2020-05-22 | Outpatient (CLI) | payer MEDICARE, OTHER | LOC: RESP 09:29 | PROVIDERS: ATTEND Family Medicine | DX: R00.2 Palpitations (principal); I51.7 Cardiomegaly; D64.9 Anemia, unspecified; R07.2 Precordial pain; Z79.899 Other long term (current) drug therapy ==

== ENCOUNTER → 2020-06-30 | Outpatient (CLI) | payer MEDICARE, OTHER | LOC: GMAM 10:31 | PROVIDERS: ATTEND Family Medicine | DX: D64.9 Anemia, unspecified (principal); E55.9 Vitamin D deficiency, unspecified; R73.09 Other abnormal glucose; E78.5 Hyperlipidemia, unspecified; Z79.899 Other long term (current) drug therapy ==